=== PATIENT | female | born 2000 | race Asian ===

== ENCOUNTER 2024-02-28 13:20 | Emergency (ER) | payer BC, SELFPAY ==
[2024-02-28 13:25] VITALS: BP 117/69
--- NOTE | 2024-02-28 14:27 | ED.GENMED ---
History of Present Illness
General
Chief Complaint: Female Medical Office Manager/Gu symptoms
Source: patient
Exam Limitations: none
Time Seen by Provider: 02/28/24 14:23
Nursing documentation reviewed up to this point in time: agreed with
History of Present Illness
History of Present Illness:
pt is a 23 y/o F with h/o pots
had IUD inserted 2 days [address] dr[address] cabrera
she says she was expecting to have some mild cramping an dpain but it has been intense at times over the past 48 hours and at this point, she wants it out. she has had minimal bleeding
no fever/chills
no urinary symptoms
pt says she called [employer] and left amessage and was told to come to the ER if she felt the pain was too severe
Past History
Past History
ED Past Medical History: Other (pots)
ED Past Surgical History: None
Social History
Tobacco: Non-smoker
Alcohol: None
Drug: None
Review of Systems
Review of Systems
Allergies reviewed?: Yes
All Other Systems: Not applicable
Phy Exam
Physical Exam
Physical Exam:
GENERAL: Alert , in no apparent distress, very well appearing
EYE: pupils equal and reactive
NECK: Supple
ENT: o/p clr, mmm.
CARDIAC: Regular rate and rhythm .
LUNGS: Clear breath sounds bilaterally, no acute respiratory distress, no wheezes/rales/rhonchi
ABDOMEN: Soft, without focal tenderness, no r/g, no cvat, normal bowel sounds
Gu:
NEUROLOGICAL: Alert and oriented, no focal neuro deficits
SKIN: Warm and dry, skin intact.
MUSCULOSKELETAL: No edema, well perfused. neg mickie's sign
PSYCH: Normal and appropriate interaction.
Course
Orders/Labs/Results
Orders:
Orders
02/28/24 14:35
US Pelvis Transvaginal Only Urgent
Reason For Exam: pain, h/o recent IUD; eval placement
Vital Signs
Initial and Last Documented VS:
Initial Vital Signs
Temp Pulse Resp BP Pulse Ox
98.4 F 75 16 117/69 99
02/28/24 13:25 02/28/24 13:25 02/28/24 13:25 02/28/24 13:25 02/28/24 13:25
Last Documented Vital Signs
Temp Pulse Resp BP Pulse Ox
98.4 F 65 18 118/66 100
02/28/24 13:25 02/28/24 16:30 02/28/24 16:30 02/28/24 16:30 02/28/24 16:30
MDM/Problems Addressed
Differential Diagnosis Includes:
IUD pain, pelvic pain/cramping
MDM/Problems Addressed:
23 y/o F
here with requiest for IUD removal after it was placed by gyne 2 days ago for control purposes
she apparently has had continued cramping the past 2 days and says that Motrin does not really help and she feels like this is more trouble in the fourth and is requesting to have it out. She called the [employer] ACCOUNT EXECUTIVE and left message
she has nontender abdomen
looks very comfortable
her gyne dr cabrera is senior environmental consultant
recommends that if the IUD is ocnfirmed in correct position on US then ok for us to remove
her US was normal
very quick and uncomplicated rmeoval of IUD
had trace bleeding in vault
no tenderness to exam
d/c home
*Critical Care Note
Total Time (30-74mins, 75-104mins- exclusive of procedures): Not Applicable
ED Attending Note
-
Portions of this chart may have been created with voice recognition software.� Occasional wrong word or��sound alike� substitutions may have occurred due to the inherent limitations of voice recognition software.
Discharge Plan
Departure
Patient Disposition: Home (Routine Discharge)
Date of Disposition: 02/28/24
Time of Disposition: 16:19
Patient with high blood pressure during this ER visit?: No
Condition: Fair
Covid-19: Not Applicable
Discharge Problem:
Pelvic cramping
Instructions: Pelvic Pain (DC)
Referrals:
Kyle Amin MD [Family Provider] -
Activity Restrictions/Additional Instructions:
AT YOUR REQUEST WE REMOVED THE IUD WITHOUT ANY ISSUES
YOUR ULTARSOUND WAS NORMAL
FOLLOW UP WITH YOUR GYNE NEEDED
USE ANOTHER FORM OF CONTROL FOR NOW
Interventions
Interventions:
*Risk Screen - Suicide Last Done: 02/28/24 13:25
*Neglect/Abuse Screening Last Done: 02/28/24 13:25
ED- Fall Risk Assessment Last Done: 02/28/24 14:28
*Nursing Disposition Last Done: 02/28/24 16:31
ED-Female Genitourinary Assessment Last Done: 02/28/24 14:26
Discharge Date and Time
Discharge Date/Time: 02/28/24 16:31
Print Language: MALDIVIAN
[2024-02-28 16:30] VITALS: BP 118/66
== END 2024-02-28 16:31 | disposition home or self-care (01) ==
LOC: EMR 13:20
PROVIDERS: EMERGENCY PHYSICIAN Emergency Medicine; FAMILY PHYSICIAN Internal Medicine
DX: R10.2 Pelvic and perineal pain (principal); G90.A Postural orthostatic tachycardia syndrome [POTS]; K90.0 Celiac disease; F90.9 Attention-deficit hyperactivity disorder, unspecified type; F32.A Depression, unspecified; Z97.5 Presence of (intrauterine) contraceptive device; Z88.8 Allergy status to other drugs, medicaments and biological substances
CPT/HCPCS: 99284; 76830

== ENCOUNTER → 2024-07-13 14:39 | Outpatient (REF) | payer BC, SELFPAY | LOC: WDC 14:39 | PROVIDERS: ATTENDING PHYSICIAN Internal Medicine | DX: N64.4 Mastodynia (principal) | CPT/HCPCS: 76642 ==

== ENCOUNTER 2024-07-19 20:39 | Emergency (ER) | payer BC, SELFPAY ==
[2024-07-19 20:47] VITALS: BP 126/85
[2024-07-19 22:29] VITALS: BP 119/68; BMI 27.6
[2024-07-19] MEDS: BENADRYL 25 MG PO (23:54)
[2024-07-19 23:57] VITALS: BP 109/75
--- NOTE | 2024-07-20 00:02 | ED.GENMED ---
History of Present Illness
General
Chief Complaint: Allergic Reaction
Source: patient
Exam Limitations: none
Time Seen by Provider: 07/19/24 23:37
Nursing documentation reviewed up to this point in time: agreed with
History of Present Illness
History of Present Illness:
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 Patient reports she took Zyrtec and
called 911. En route, patient was given 25 mg of IV Benadryl and Solu-Medrol by paramedics. Patient reports she now feels much better. Patient denies a history of asthma. Patient has no difficulty swallowing or breathing. She denies wheezing.
She denies nausea vomiting and diarrhea.
Past History
Past History
ED Past Medical History: Other (pots, celiac disease)
ED Past Surgical History: None
Social History
Tobacco: Non-smoker
Alcohol: None
Drug: None
Personal: Single
Living: other
Employment: Other
Family History
Family History: Other
Review of Systems
Review of Systems
Allergies reviewed?: Yes
All Other Systems: ROS reviewed and negative except as documented in HPI and ROS
Constitutional: Reports no symptoms
EENT: Reports other (Itching of tongue and throat)
Respiratory: Reports no symptoms
Cardiac: Reports other (Lightheaded)
ABD/GI: Reports no symptoms
: Reports no symptoms
Musculoskeletal: Reports no symptoms
Skin: Reports itching
Neurological: Reports no symptoms
Endocrine: Reports no symptoms
Hematologic/Lymphatic: Reports no symptoms
Psychiatric: Reports no symptoms
Phy Exam
Physical Exam
Physical Exam:
Physical Exam
General: no apparent distress, not acutely ill, well appearing
Neck: supple. no meningeal signs. normal psoterior pharynx. No tongue or lip swelling. No uvular swelling. No stridor
Heart: s1/s2 regular rate and rhythm, no murmur. equal radial pulses.
Lungs: no acute respiratory distress. clear bilaterally
Abdomen: Soft, nontender
Neuro: alert and oriented. no focal neurological deficits
Skin: no rash
Psychiatric: well kept. interactive and cooperative
Extremities: no edema.
Course
Orders/Labs/Results
Orders:
Orders
07/19/24 23:46
Diphenhydramine [Benadryl] 25 mg PO NOW STA
Vital Signs
Initial and Last Documented VS:
Initial Vital Signs
Temp Pulse Resp BP Pulse Ox
98.2 F 73 18 126/85 100
07/19/24 20:47 07/19/24 20:47 07/19/24 20:47 07/19/24 20:47 07/19/24 20:47
Last Documented Vital Signs
Temp Pulse Resp BP Pulse Ox
98.2 F 72 16 109/75 100
07/19/24 20:47 07/19/24 23:57 07/19/24 23:57 07/19/24 23:57 07/19/24 23:57
MDM/Problems Addressed
Differential Diagnosis Includes:
Acute allergic reaction to food, idiopathic urticaria
MDM/Problems Addressed:
Patient presents with acute itching of mouth and throat after consuming a protein bar
Chronic conditions affecting care:
History of hazlenut allergy
Acute Exacerbation and/or Progression of Chronic Illness:
Patient may have acute allergic reaction from chronic hazlenut allergy
*Pulse Oximetry
Patient hypoxic: no
*EKG
Interpreted by ED Provider?: NA
*Health Unit Clerk Interpretation
Rate: Health Unit Clerk- N/A
*Critical Care Note
Total Time (30-74mins, 75-104mins- exclusive of procedures): Not Applicable
Data Reviewed
Source: patient
Update Note
Update Note:
Patient looks comfortable and well. There is no sign of airway compromise.
ED Attending Note
-
Portions of this chart may have been created with voice recognition software.� Occasional wrong word or��sound alike� substitutions may have occurred due to the inherent limitations of voice recognition software.
Discharge Plan
Departure
Patient Disposition: Home (Routine Discharge)
Date of Disposition: 07/19/24
Time of Disposition: 23:47
Patient with high blood pressure during this ER visit?: No
Condition: Good
Covid-19: Not Applicable
Discharge Problem:
Allergic reaction to food
Instructions: Allergic reaction - ED discharge instructions
Prescriptions:
New
epinephrine [EpiPen] 0.3 mg/0.3 mL auto-injector
0.3 mg IM .STAT PRN (Reason: anaphylaxis) Qty: 1 0RF
Referrals:
Kyle Amin MD [Family Provider] -
Activity Restrictions/Additional Instructions:
Take 25 to 50 mg of Benadryl, which is sold [id number] at a pharmacy, for any lingering symptoms such as itching
You should use the epinephrine if you have any swelling to the tongue or throat, or any difficulty swallowing or breathing.
Follow-up with your primary care doctor or an tea and spice supervisor within 1 week
Avoid all tree nuts and sesame seeds
Interventions
Interventions:
*Risk Screen - Suicide Last Done: 07/19/24 20:47
*General Assessment Last Done: 07/19/24 20:47
*Neglect/Abuse Screening Last Done: 07/19/24 20:47
*ED COVID-19 Vaccine History Last Done: 07/19/24 22:29
*Nursing Disposition Last Done: 07/19/24 23:57
ED- Cardiac Assessment Last Done: 07/19/24 22:29
ED- Pulmonary Assessment Last Done: 07/19/24 22:29
ED-Skin Assessment Last Done: 07/19/24 22:29
Discharge Date and Time
Print Language: DJIBOUTIAN
== END 2024-07-20 00:09 | disposition home or self-care (01) ==
LOC: EMR 20:39
PROVIDERS: EMERGENCY PHYSICIAN Emergency Medicine; FAMILY PHYSICIAN Internal Medicine
DX: T78.1XXA Other adverse food reactions, not elsewhere classified, initial encounter (principal); L29.9 Pruritus, unspecified; X58.XXXA Exposure to other specified factors, initial encounter; K90.0 Celiac disease; Z91.018 Allergy to other foods
CPT/HCPCS: 99283